=== PATIENT | female | born 1970 | race Caucasian/White ===

== ENCOUNTER 2024-12-29 10:45 | Emergency (ER) | payer OTHER ==
[~2024-12-29] VITALS: Ht 157.5 cm; Wt 70.5 kg
[2024-12-29 11:04] VITALS: BP 133/79; PULSE 65; RESP 16; TEMP 98; O2SAT 99
[2024-12-29] MEDS: ACETAMINOPHEN 500 MG TABLET PO ONE (13:44)
[2024-12-29] MEDS: IBUPROFEN 600 MG TABLET PO ONE (13:44)
[2024-12-29] MEDS ORDERED: ACET-66 PO (14:06)
[2024-12-29] MEDS ORDERED: IBUP-1554 PO (14:06)
[2024-12-29] MEDS ORDERED: METH-659 PO (14:06)
== END 2024-12-29 15:45 | disposition home or self-care (01) ==
LOC: EMS 10:46
DX: M54.2 Cervicalgia (principal); M54.6 Pain in thoracic spine; Z98.51 Tubal ligation status; Z90.49 Acquired absence of other specified parts of digestive tract; Z88.0 Allergy status to penicillin; V43.52XA Car driver injured in collision with other type car in traffic accident, initial encounter; Y93.89 Activity, other specified; Y92.410 Unspecified street and highway as the place of occurrence of the external cause; Y99.8 Other external cause status
CPT/HCPCS: 72040; 72070; 72100; 99284; Z7502; Z7610